=== PATIENT | male | born 1960 | race Caucasian/White ===

== ENCOUNTER 2020-11-29 07:58 | Outpatient (REF) | payer OTHER, SELFPAY ==
--- NOTE | ~2020-11-29 | US_ITS ---
EXAMINATION: US ABDOMEN LIMITED CLINICAL INFORMATION: Left lower quadrant pain. Intermittent pain. COMPARISON: None TECHNIQUE: Real-time imaging of the lower quadrant using a curved transducer. FINDINGS: No abnormality is evident by ultrasound. No hernia or abdominal wall fluid collection is seen. No abnormal loops of bowel, mass or ascites is seen. US/US abdomen limited IMPRESSION: No abnormality seen by ultrasound.
== END 2020-11-29 07:59 | disposition home or self-care (01) ==
LOC: HO.US 07:58
PROVIDERS: PCP Family Medicine; Visit Provider Family Medicine
DX: R10.32 Left lower quadrant pain (principal)
CPT/HCPCS: 76705

== ENCOUNTER 2020-11-29 09:07 | Outpatient (REF) | payer OTHER, SELFPAY ==
[2020-11-29 11:03] LABS: Alanine Aminotransferase 17 U/L (0-40); Albumin Level 3.9 g/dL (3.5-5.0); Alkaline Phosphatase 58 U/L (39-117); Anion Gap 11 (12-20); Aspartate Amino Transferase 16 U/L (5-37); Bilirubin Total 0.6 mg/dL (0.0-1.0); Blood Urea Nitrogen 18 mg/dL (9-16); Calcium 8.9 mg/dL (8.4-10.2); Carbon Dioxide 26 mmol/L (22-29); Chloride 105 mmol/L (96-108); Cholesterol 183 mg/dL; Estimated Glomerular Filt Rate > 60; Glucose Fasting 92 mg/dL (60-99); HDL Cholesterol 41 mg/dL; LDL Cholesterol Calculated 125 mg/dl; Potassium 4.4 mmol/L (3.3-5.1); Sodium 138 mmol/L (135-145); Total Protein 6.3 g/dL (6.5-8.0); Triglycerides 87 mg/dL
[2020-11-29 11:11] LABS: TSH reflex Free T4 1.52 uIU/mL (0.32-4.0)
== END 2020-11-29 09:08 | disposition home or self-care (01) ==
LOC: HO.WFDLDS 09:07
PROVIDERS: Visit Provider Family Medicine
DX: Z00.00 Encounter for general adult medical examination without abnormal findings (principal)
CPT/HCPCS: 36415; 80053; 80061; 84443

== ENCOUNTER 2021-06-17 12:07 | Outpatient (REF) | payer OTHER, SELFPAY ==
[2021-06-17 14:56] LABS: Prostate Specific Antigen Scr 0.37 ng/mL (<0.05-4.0)
== END 2021-06-17 12:08 | disposition home or self-care (01) ==
LOC: HO.WFDLDS 12:07
PROVIDERS: Visit Provider Family Medicine
DX: Z12.5 Encounter for screening for malignant neoplasm of prostate (principal)
CPT/HCPCS: 36415; 84153

== ENCOUNTER 2022-03-03 07:57 | Outpatient (REF) | payer OTHER, SELFPAY ==
--- NOTE | ~2022-03-03 | XR_ITS ---
EXAMINATION: XR SHOULDER, RIGHT CLINICAL INFORMATION: Shoulder pain COMPARISON: None TECHNIQUE: Right shoulder is imaged in 3 views. FINDINGS: No fracture, dislocation, destructive process. No visible rotator cuff calcifications. The glenohumeral joint is unremarkable. The acromioclavicular alignment is normal. There are mild degenerative changes acromioclavicular joint. Right lung apex appears clear. XR/XR shoulder RT min 2V IMPRESSION: Mild degenerative changes acromioclavicular joint.
== END 2022-03-03 07:58 | disposition home or self-care (01) ==
LOC: HO.HOSX 07:57
PROVIDERS: Visit Provider Physician Assistant
DX: M75.101 Unspecified rotator cuff tear or rupture of right shoulder, not specified as traumatic (principal)
CPT/HCPCS: 73030; 99202

== ENCOUNTER → 2022-03-16 15:09 | Outpatient (BNVA) | payer OTHER, SELFPAY | PROVIDERS: PCP Family Medicine; Visit Provider Orthopaedic Surgery | DX: M75.101 Unspecified rotator cuff tear or rupture of right shoulder, not specified as traumatic (principal) | CPT/HCPCS: 99212 ==

== ENCOUNTER 2022-03-27 08:41 | Outpatient (REF) | payer OTHER, SELFPAY ==
[2022-03-27 11:11] LABS: MANUAL DIFF FLAG NO
[2022-03-27 11:38] LABS: Basophils Percent Auto 0.4 % (0-2); Eosinophils Absolute Auto 0.4 X10*3/uL (0.0-0.4); Eosinophils Percent Auto 5.8 % (0-4); Hematocrit 39.9 % (42.0-52.0); Hemoglobin 13.6 g/dl (14.0-18.0); Imm Gran Abs Auto 0.03 X10*3/uL (0.00-0.03); Imm Gran Pct Auto 0.4 % (0.0-0.4); Lymphocytes Absolute Auto 1.7 X10*3/uL (1.2-4.9); Lymphocytes Percent Auto 24.2 % (20-40); Mean Corpuscular HGB Conc 34.1 g/dl (31.0-36.0); Mean Corpuscular Hemoglobin 30.2 pg (27.0-33.0); Mean Corpuscular Volume 88.5 fL (80.0-98.0); Mean Platelet Volume 10.3 fL (9.4-12.4); Monocytes Absolute Auto 0.5 X10*3/uL (0.1-1.2); Monocytes Percent Auto 7.1 % (2-11); Neutrophils Absolute Auto 4.4 x10*3/uL (2.0-8.3); Neutrophils Percent Auto 62.1 % (45-73); Platelet Count 250 X10*3/uL (160-400); Red Blood Count 4.51 X10*6/uL (4.60-5.80); Red Cell Distribution Width 11.6 % (11.0-16.0); White Blood Count 7.1 X10*3/uL (4.8-10.8)
[2022-03-27 11:40] LABS: Appearance Urine Clear; Color Urine Yellow; Glucose Urine UA Negative (Negative); Leukocyte Esterase Urine Negative (Negative); Nitrite Urine Negative (Negative); PH 5.5 (5.0-9.0); Urine Blood Negative (Negative); Urine Ketones Negative (Negative); Urine Protein Negative (Neg-Trace)
[2022-03-27 11:47] LABS: Alanine Aminotransferase 18 U/L (0-40); Alkaline Phosphatase 53 U/L (39-117); Anion Gap 13 (12-20); Aspartate Amino Transferase 15 U/L (5-37); Bilirubin Total 0.5 mg/dL (0.0-1.0); Blood Urea Nitrogen 16 mg/dL (9-16); Calcium 8.9 mg/dL (8.4-10.2); Carbon Dioxide 29 mmol/L (22-29); Chloride 102 mmol/L (96-108); Cholesterol 215 mg/dL; Estimated Glomerular Filt Rate > 60; Glucose Fasting 100 mg/dL (60-99); HDL Cholesterol 39 mg/dL; LDL Cholesterol Calculated 156 mg/dl; Potassium 4.4 mmol/L (3.3-5.1); Sodium 140 mmol/L (135-145); Total Protein 6.5 g/dL (6.5-8.0); Triglycerides 104 mg/dL
[2022-03-27 12:10] LABS: Prostate Specific Antigen Scr 0.34 ng/mL (<0.05-4.0); TSH reflex Free T4 1.52 uIU/mL (0.32-4.0)
[2022-03-27 12:17] LABS: Creatinine Urine 69.35 mg/dL; Microalbumin Urine < 5.0 mg/L
== END 2022-03-27 08:42 | disposition home or self-care (01) ==
LOC: HO.WFDLDS 08:41
PROVIDERS: Visit Provider Family Medicine
DX: Z00.00 Encounter for general adult medical examination without abnormal findings (principal); I10 Essential (primary) hypertension; Z12.5 Encounter for screening for malignant neoplasm of prostate
CPT/HCPCS: 36415; 80053; 80061; 81003; 82043; 84153; 84443; 85025

== ENCOUNTER 2022-05-01 11:20 | Outpatient (REF) | payer OTHER, SELFPAY ==
[2022-05-01 13:48] LABS: MANUAL DIFF FLAG NO
[2022-05-01 13:52] LABS: Basophils Percent Auto 0.3 % (0-2); Eosinophils Absolute Auto 0.3 X10*3/uL (0.0-0.4); Eosinophils Percent Auto 4.2 % (0-4); Hemoglobin 13.4 g/dl (14.0-18.0); Imm Gran Abs Auto 0.02 X10*3/uL (0.00-0.03); Imm Gran Pct Auto 0.3 % (0.0-0.4); Lymphocytes Absolute Auto 1.6 X10*3/uL (1.2-4.9); Lymphocytes Percent Auto 22.2 % (20-40); Mean Corpuscular HGB Conc 34.4 g/dl (31.0-36.0); Mean Corpuscular Hemoglobin 31.1 pg (27.0-33.0); Mean Corpuscular Volume 90.5 fL (80.0-98.0); Mean Platelet Volume 10.2 fL (9.4-12.4); Monocytes Absolute Auto 0.5 X10*3/uL (0.1-1.2); Neutrophils Absolute Auto 4.7 x10*3/uL (2.0-8.3); Platelet Count 226 X10*3/uL (160-400); Red Blood Count 4.31 X10*6/uL (4.60-5.80); Red Cell Distribution Width 11.8 % (11.0-16.0); White Blood Count 7.2 X10*3/uL (4.8-10.8)
[2022-05-01 14:02] LABS: Prothrombin Time 11.7 SEC (10.0-13.1)
[2022-05-01 14:15] LABS: Anion Gap 14 (12-20); Blood Urea Nitrogen 16 mg/dL (9-16); Carbon Dioxide 28 mmol/L (22-29); Chloride 101 mmol/L (96-108); Estimated Glomerular Filt Rate > 60; Glucose Random 111 mg/dL (60-115); Potassium 4.3 mmol/L (3.3-5.1); Sodium 139 mmol/L (135-145)
== END 2022-05-01 11:21 | disposition home or self-care (01) ==
LOC: HO.WFDLDS 11:20
PROVIDERS: Visit Provider Family Medicine
DX: Z01.810 Encounter for preprocedural cardiovascular examination (principal)
CPT/HCPCS: 36415; 80048; 85025; 85610

== ENCOUNTER → 2022-05-04 15:09 | Outpatient (BNVA) | payer OTHER, SELFPAY | PROVIDERS: PCP Family Medicine; Visit Provider Physician Assistant | DX: M75.101 Unspecified rotator cuff tear or rupture of right shoulder, not specified as traumatic (principal) | CPT/HCPCS: 99212 ==

== ENCOUNTER 2022-05-10 06:13 | Day surgery (SDC) | payer OTHER, SELFPAY ==
[2022-05-04 14:23] VITALS: BMI 27.7
--- NOTE | 2022-05-09 08:11 | HO.ANESPROP2 ---
Documented by User: Tameka Ramirez NP 05/09/22 08:12 HPI - Anesthesia Eval Consult details Narrative: 61yo M for Right Arthroscopic Rotator Cuff Repair PCP cleared PMFSH Active Problems Active Problems: All Active Problems (Updated 05/04/22 @ 14:22 by Radha Wick RN) Laboratory examination ordered as part of a routine general medical examination (Acute) Dermatitis (Acute) Abdominal wall pain in left lower quadrant (Acute) Anxiety (Acute) Screening for colon cancer (Acute) Screening for prostate cancer (Acute) Annual physical exam (Acute) Right shoulder pain (Acute) Elevated blood pressure reading (Acute) Hearing loss (Acute) Right rotator cuff tear (Acute) Preop cardiovascular exam (Acute) Past Medical History Medical History (Updated 05/10/22 @ 06:19 by Parisa Bo RN) Anxiety GERD (gastroesophageal reflux disease) Family History Family History Mother No problems noted. Father No problems noted. 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 Meds Allergies Allergy/AdvReac Type Severity Reaction Status Date / Time No Known Allergies Allergy Verified 05/10/22 06:23 Home Medications Medication Instructions Recorded Confirmed Last Taken Type bupropion HCl 300 mg 24 hr tablet, 300 mg PO QAM 04/28/22 05/10/22 05/10/22 05:00 History extended release escitalopram oxalate 20 mg tablet 20 mg PO BEDTIME 05/04/22 05/10/22 Unknown History omeprazole 20 mg tablet,delayed 20 mg PO DAILY 05/10/22 05/10/22 Unknown History release Exam Exam Date and Time: May 09, 2022 0811 Height,Weight and Vital Signs: Height 5 ft 6 in Weight 78.018 kg Pertinent Lab Results Pertinent Lab Results: Laboratory Tests 05/01/22 05/01/22 11:26 11:26 WBC 7.2 Hgb 13.4 L Hct 39.0 L Plt Count 226 Sodium 139 Potassium 4.3 Chloride 101 Carbon Dioxide 28 BUN 16 Creatinine 1.19 Narrative Narrative: EKG 04/2022 NSR @ 62 Assessment and Plan Assessment Anesthesia Assessment: Chart Reviewed Documented by User: Maco Bustos MD 05/10/22 17:08 [facility] Past Medical History Medical History (Updated 05/10/22 @ 06:19 by Parisa Bo RN) Anxiety GERD (gastroesophageal reflux disease) Functional capacity: independent ambulation Family History Family History Mother No problems noted. Father No problems noted. 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 Meds Allergies Allergy/AdvReac Type Severity Reaction Status Date / Time No Known Allergies Allergy Verified 05/10/22 06:23 Home Medications Medication Instructions Recorded Confirmed Last Taken Type bupropion HCl 300 mg 24 hr tablet, 300 mg PO QAM 04/28/22 05/10/22 05/10/22 05:00 History extended release escitalopram oxalate 20 mg tablet 20 mg PO BEDTIME 05/04/22 05/10/22 Unknown History omeprazole 20 mg tablet,delayed 20 mg PO DAILY 05/10/22 05/10/22 Unknown History release Exam Airway Mallampati Class: IV (narrow mouth opening ) TM Dist: >3cm Neck ROM: Full Loose/Missing/Broken Teeth: Yes (Poor dentition overall ) Heart: S1,S2 Lungs: b/l breath sounds Assessment and Plan Assessment Anesthesia Assessment: Anesthesia Plan Discussed Final Anesthetic Review Family History of Problems with Anesthesia: No History of Problems with Anesthesia: No NPO: Yes ASA Class: II Final Preanesthetic Review: Meds/Allgs Chart Reviewed, Consent Obtained/Reviewed and Anes Risks/Benef Reviewed Patient Risk: Intermediate Procedure Risk: Intermediate Anesthetic Plan Anesthetic Plan: GA and Regional Block Disposition: Standard PACU
[2022-05-10] VITALS (11 sets, daily range): BP systolic 119–161; BP diastolic 72–81; PULSE 67–75; RESP 12–20; TEMP 36.3–36.7; O2SAT 93–98
[2022-05-10] MEDS: Lactated Ringers 1,000 ML 100 ML IVCONT (06:39)
--- NOTE | 2022-05-10 07:33 | MHC.SHP ---
Pre-Procedural Eval Section A Date of Service: 05/10/22 The patient is an INPATIENT: No Changes since office visit: No Cold of Flu in the past 2 weeks, No New Medical Problems, No Changes in Medication and No Patient answered all questions The History & Physical has been completed within 30 days and I have reviewed it.: Yes Section B Chief Complaint: Unspecified rotator cuff tear or rupture of right Allergies: Allergies Allergy/AdvReac Type Severity Reaction Status Date / Time No Known Allergies Allergy Verified 05/10/22 06:23 Plan I have reviewed the history and physical and performed a pertinent physical examination on my patient. No changes have occurred unless specified.
--- NOTE | 2022-05-10 09:26 | PM.OP ---
Brief Operative Note Date of Service: 05/10/22 Pre-op diagnosis: Right RTC tear Post-op diagnosis: same Procedure: Right RTC repair and SAD Implants: Lincoln and Nephew Melacoil x 5 Surgeon: Inderjit Mcgovern MD Anesthesia: GETA and regional Was an Sulfuric Acid Plant Supervisor used for this Procedure?: Yes Sulfuric Acid Plant Supervisor: Zaida Jimenez Estimated blood loss (mL): 20 IV fluids (mL): 850 Pathology: none sent Condition: stable Disposition: PACU
--- NOTE | 2022-05-10 09:33 | P.OP_ITS ---
Operative Note Operative Note Date of Service: 05/10/22 Narrative: Date of Service: 05/10/22 Pre-op diagnosis: Right RTC tear Post-op diagnosis: same Procedure: Right RTC repair and SAD Implants: Lincoln and Nephew Melacoil x 5 Surgeon: Inderjit Mcgovern MD Anesthesia: GETA and regional Was an Skeins Yarn Examiner used for this Procedure?: Yes Skeins Yarn Examiner: Zaida Jimenez Estimated blood loss (mL): 20 IV fluids (mL): 850 Pathology: none sent Condition: stable Disposition: PACU Procedure in detail: Patient was brought to the operating room and placed the the beach chair position. All bony prominences were well padded and the limb was prepped and draped in standard sterile fashion. A time out was called to identify proper site, proper procedure and proper surgeon. IV antibiotics per weight were administered. I began by making a posterolateral stab incision with a 15 blade. A blunt trochar was placed into the glenohumeral joint and I insufflated the joint with saline and a 30 degree arthroscope was placed. I established an outside- in anterior portal just distal to the biceps tendon. I then began my inspection of the glenohumeral joint. There was an intact biceps. The glenoid and humeral head cartilage were intact. There was a full thickness undersurface RTC tear. The subcapularis was intact. I then removed the trochar and entered the subacromial space. A direct lateral portal was then established and I performed a bursectomy. The cuff was then examined. There was a full thickness tear of the supra and infraspinatus without retraction. The tear was mobile. I then placed two medial row double loaded anchors and then brought the suture tape through the medial cuff. I added two looped sutures at the anterior and posterior most aspect of the tear. I then debrided the bare area down to bleeding bone and, using a cross bridge configuration, brought 9 limbs to three lateral 5.0 anchors. This re- approximated the cuff anatomy near anatomically. I then performed a 5 mm subacromial decompression. Once I was satisfied with the repair final images were captured and I removed all instrumentation. Portals were closed with nylon. Patient was placed in an abduction sling, extubated and brought to the recovery room in stable condition. There were no known complications.
[2022-05-10] MEDS: oxyCODONE HCl Immed Release 5 MG TABLET PO (10:23)
== END 2022-05-10 12:35 | disposition home or self-care (01) ==
PROVIDERS: PCP Family Medicine; Visit Provider Orthopaedic Surgery
PROC: (CPT 29827; principal; 2022-05-10 07:30)
DX: S46.011A Strain of muscle(s) and tendon(s) of the rotator cuff of right shoulder, initial encounter (principal); X50.3XXA Overexertion from repetitive movements, initial encounter; X50.1XXA Overexertion from prolonged static or awkward postures, initial encounter; Y93.89 Activity, other specified; Y92.69 Other specified industrial and construction area as the place of occurrence of the external cause; Y99.0 Civilian activity done for income or pay; F41.1 Generalized anxiety disorder; Z79.899 Other long term (current) drug therapy
CPT/HCPCS: 29827; 29826; C1713; J0131; J0171; J0690; J1100; J1170; J2250; J2405; J2795; J3010

== ENCOUNTER 2022-07-20 09:05 | Outpatient (REF) | payer OTHER, SELFPAY ==
[2022-07-20 10:34] LABS: MANUAL DIFF FLAG NO
[2022-07-20 10:47] LABS: Basophils Percent Auto 0.6 % (0-2); Eosinophils Absolute Auto 0.4 X10*3/uL (0.0-0.4); Eosinophils Percent Auto 5.8 % (0-4); Hematocrit 40.7 % (42.0-52.0); Hemoglobin 13.9 g/dl (14.0-18.0); Imm Gran Abs Auto 0.02 X10*3/uL (0.00-0.03); Imm Gran Pct Auto 0.3 % (0.0-0.4); Lymphocytes Absolute Auto 1.8 X10*3/uL (1.2-4.9); Lymphocytes Percent Auto 25.5 % (20-40); Mean Corpuscular HGB Conc 34.2 g/dl (31.0-36.0); Mean Corpuscular Volume 87.7 fL (80.0-98.0); Mean Platelet Volume 9.8 fL (9.4-12.4); Monocytes Absolute Auto 0.5 X10*3/uL (0.1-1.2); Monocytes Percent Auto 7.5 % (2-11); Neutrophils Absolute Auto 4.3 x10*3/uL (2.0-8.3); Neutrophils Percent Auto 60.3 % (45-73); Platelet Count 253 X10*3/uL (160-400); Red Blood Count 4.64 X10*6/uL (4.60-5.80); Red Cell Distribution Width 11.5 % (11.0-16.0); White Blood Count 7.1 X10*3/uL (4.8-10.8)
[2022-07-20 11:58] LABS: Alanine Aminotransferase 24 U/L (0-40); Alkaline Phosphatase 63 U/L (39-117); Anion Gap 9 (12-20); Aspartate Amino Transferase 17 U/L (5-37); Bilirubin Total 0.5 mg/dL (0.0-1.0); Blood Urea Nitrogen 17 mg/dL (9-16); Calcium 9.1 mg/dL (8.4-10.2); Carbon Dioxide 31 mmol/L (22-29); Chloride 101 mmol/L (96-108); Cholesterol 240 mg/dL; Estimated Glomerular Filt Rate > 60; Glucose Fasting 90 mg/dL (60-99); HDL Cholesterol 44 mg/dL; LDL Cholesterol Calculated 172 mg/dl; Sodium 137 mmol/L (135-145); Total Protein 6.4 g/dL (6.5-8.0); Triglycerides 120 mg/dL
== END 2022-07-20 09:06 | disposition home or self-care (01) ==
LOC: HO.WFDLDS 09:05
PROVIDERS: Visit Provider Family Medicine
DX: Z00.00 Encounter for general adult medical examination without abnormal findings (principal)
CPT/HCPCS: 36415; 80053; 80061; 85025

== ENCOUNTER → 2022-07-27 14:54 | Outpatient (BNVA) | payer OTHER, SELFPAY | PROVIDERS: PCP Family Medicine; Visit Provider Physician Assistant | DX: M75.101 Unspecified rotator cuff tear or rupture of right shoulder, not specified as traumatic (principal) ==

== ENCOUNTER 2022-08-14 09:35 | Outpatient (REF) | payer OTHER, SELFPAY ==
--- NOTE | ~2022-08-14 | XR_ITS ---
EXAMINATION: XR SHOULDER, RIGHT CLINICAL INFORMATION: Pain. COMPARISON: Radiographs dated 03/03/2022. TECHNIQUE: AP external rotation, Grashey, scapular Y, and axillary views of the right shoulder. FINDINGS: There is bony demineralization. The glenohumeral joint is intact and shows mild peripheral osteophyte formation. Orthopedic anchors are applied in the interim to the right humeral head. There is cortical irregularity of the greater tuberosity of the proximal right humerus. No fracture or dislocation is seen. This no soft tissue calcifications or foreign body. No right pneumothorax is seen. XR/XR shoulder RT min 2V IMPRESSION: 1. There is mild osteoarthritic change of the right glenohumeral joint. 2. There is interim application of orthopedic anchors to the right humeral head. Please correlate with the patient's past medical history.
== END 2022-08-14 09:36 | disposition home or self-care (01) ==
LOC: HO.HOSX 09:35
PROVIDERS: Visit Provider Physician Assistant
DX: M25.511 Pain in right shoulder (principal); Z47.89 Encounter for other orthopedic aftercare
CPT/HCPCS: 73030

== ENCOUNTER 2022-08-16 16:00 | Outpatient (RCR) | payer OTHER, SELFPAY ==
--- NOTE | 2022-09-18 17:50 | MHC.PT.DC ---
[facility] [place] Office [place] Office [place] Office [address] Sarah Kwan [address] [phone] F: [phone] F: [phone] F: [phone] F: [phone] Physical Therapy Discharge Report Diagnosis: R RTCR (SS/IS) Date of Surgery: 05/10/22 Date of Evaluation: 05/15/22 Date of Discharge: 09/18/22 Treatments to Date: Cancellations to Date: 1 No Shows to Date: 0 Discharge Status: Insurance Declined Tx Discharge Summary: Per last treatment note on 08/16/22: pt was at work but was doing nearly his full duties prior to his injuries. He was starting to develop a persistent achiness that wasn't going away. He followed-up w/ the orthopedic surgeon who regressed him to desk duties only. pt stated he forgot the new stretches we worked on during his last visit so he hasn't been working on them. We reviewed the internal rotation stretches as this is his most limited range of motion. pt otherwise tolerated remainder of session well. Continue to maximize range, strength, and promote return to full work capacity. Request for additional visits was denied by insurance. Per our insurance rep she was told his insurance wants him to attend a specific work hardening program which we do not offer here at [facility]. He is discharged per insurance. Electronically signed by: Anabel Michelle PT, DPT Please sign and return to therapist. Thank you for your referral.
== END 2022-09-18 17:50 | disposition home or self-care (01) ==
LOC: HO.PT 16:00
PROVIDERS: Visit Provider Physician Assistant
DX: Z98.890 Other specified postprocedural states (principal)
CPT/HCPCS: 97110; 97140; 97161; 97164; 97530

== ENCOUNTER 2022-09-18 09:21 | Outpatient (REF) | payer OTHER, SELFPAY ==
[2022-09-18 11:28] LABS: MANUAL DIFF FLAG NO
[2022-09-18 11:46] LABS: Basophils Percent Auto 0.5 % (0-2); Eosinophils Absolute Auto 0.4 X10*3/uL (0.0-0.4); Eosinophils Percent Auto 4.9 % (0-4); Hemoglobin 13.5 g/dl (14.0-18.0); Imm Gran Abs Auto 0.03 X10*3/uL (0.00-0.03); Imm Gran Pct Auto 0.4 % (0.0-0.4); Lymphocytes Percent Auto 25.6 % (20-40); Mean Corpuscular HGB Conc 34.6 g/dl (31.0-36.0); Mean Corpuscular Hemoglobin 30.3 pg (27.0-33.0); Mean Corpuscular Volume 87.6 fL (80.0-98.0); Mean Platelet Volume 10.3 fL (9.4-12.4); Monocytes Absolute Auto 0.5 X10*3/uL (0.1-1.2); Monocytes Percent Auto 6.7 % (2-11); Neutrophils Absolute Auto 4.9 x10*3/uL (2.0-8.3); Neutrophils Percent Auto 61.9 % (45-73); Platelet Count 239 X10*3/uL (160-400); Red Blood Count 4.45 X10*6/uL (4.60-5.80); Red Cell Distribution Width 11.7 % (11.0-16.0); White Blood Count 7.9 X10*3/uL (4.8-10.8)
[2022-09-18 12:17] LABS: Anion Gap 9 (12-20); Blood Urea Nitrogen 16 mg/dL (9-16); Calcium 8.6 mg/dL (8.4-10.2); Carbon Dioxide 32 mmol/L (22-29); Chloride 103 mmol/L (96-108); Cholesterol 200 mg/dL; Estimated Glomerular Filt Rate > 60; Glucose Random 92 mg/dL (60-115); HDL Cholesterol 40 mg/dL; LDL Cholesterol Calculated 140 mg/dl; Potassium 4.2 mmol/L (3.3-5.1); Sodium 140 mmol/L (135-145); Triglycerides 103 mg/dL
== END 2022-09-18 09:22 | disposition home or self-care (01) ==
LOC: HO.WFDLDS 09:21
PROVIDERS: Visit Provider Family Medicine
DX: Z00.00 Encounter for general adult medical examination without abnormal findings (principal); E78.00 Pure hypercholesterolemia, unspecified; D64.9 Anemia, unspecified
CPT/HCPCS: 36415; 80048; 80061; 85025

== ENCOUNTER → 2022-09-25 15:17 | Outpatient (BNVA) | payer OTHER, SELFPAY | PROVIDERS: Visit Provider Physician Assistant | DX: Z13.89 Encounter for screening for other disorder (principal) ==

== ENCOUNTER → 2022-11-13 15:18 | Outpatient (BNVA) | payer OTHER, SELFPAY | PROVIDERS: PCP Family Medicine; Visit Provider Physician Assistant ==

== ENCOUNTER 2023-02-05 07:39 | Outpatient (REF) | payer OTHER, SELFPAY ==
[2023-02-05 11:51] LABS: Appearance Urine Clear; Color Urine Yellow; Glucose Urine UA Negative (Negative); Leukocyte Esterase Urine Negative (Negative); Nitrite Urine Negative (Negative); PH 5.5 (5.0-9.0); Specific Gravity - Urine 1.015 (1.005-1.025); Urine Blood Negative (Negative); Urine Ketones Negative (Negative); Urine Protein Negative (Neg-Trace)
[2023-02-05 12:25] LABS: Prostate Specific Antigen Scr 0.37 ng/mL (<0.05-4.0)
[2023-02-05 12:26] LABS: Alanine Aminotransferase 23 U/L (0-40); Alkaline Phosphatase 59 U/L (39-117); Anion Gap 15 (12-20); Aspartate Amino Transferase 21 U/L (5-37); Bilirubin Total 0.3 mg/dL (0.0-1.0); Blood Urea Nitrogen 18 mg/dL (9-16); Calcium 9.6 mg/dL (8.4-10.2); Carbon Dioxide 25 mmol/L (22-29); Chloride 102 mmol/L (96-108); Cholesterol 199 mg/dL; Estimated Glomerular Filt Rate > 60; Glucose Fasting 106 mg/dL (60-99); HDL Cholesterol 44 mg/dL; LDL Cholesterol Calculated 134 mg/dl; Potassium 4.3 mmol/L (3.3-5.1); Sodium 138 mmol/L (135-145); Total Protein 6.7 g/dL (6.5-8.0); Triglycerides 107 mg/dL
[2023-02-05 13:13] LABS: Creatinine Urine 116.34 mg/dL; Microalbumin Urine < 5.0 mg/L
== END 2023-02-05 07:40 | disposition home or self-care (01) ==
LOC: HO.WFDLDS 07:39
PROVIDERS: Visit Provider Family Medicine
DX: Z00.00 Encounter for general adult medical examination without abnormal findings (principal); Z12.5 Encounter for screening for malignant neoplasm of prostate; E78.00 Pure hypercholesterolemia, unspecified; I10 Essential (primary) hypertension
CPT/HCPCS: 36415; 80053; 80061; 81003; 82043; 84153; 84443

== ENCOUNTER 2023-02-16 15:59 | Outpatient (AMB) | payer OTHER, SELFPAY ==
[2023-02-16 16:12] VITALS: BP 122/72; PULSE 71; O2SAT 98; BMI 26.4
--- NOTE | 2023-02-16 16:12 | A.OFFPC_ITS ---
Vital Signs 02/16/23 16:12 Height 5 ft 6 in Weight 163 lb 6 oz BMI 26.4 BP 122/72 Blood Pressure Location Lt brachial Position Sitting Pulse 71 Pulse Source Pulse Oximeter Pulse Oximetry (%) 98 Oxygen Delivery Method Room Air Intake Visit Reasons: CPE, with f/u labs and health maintenance, HTN Intake Note: Patient is here for his physical toaday, and is concerned about skin irritation on right wrist area about 2 days ago, working outside. Allergies No Known Allergies Allergy (Verified 02/16/23 16:14) Tobacco use date assessed: 02/16/23 Dental Screening Dental Screen Date: 02/16/23 Did you have a dental visit in the last 12 months?: Yes Did you have a dental problem in the last 6 months where you did not have access to dental care?: No Was dental information given to patient?: No HPI CPE, with f/u labs and health maintenance, HTN HPI Details 62 y/o male presents for a CPE with f/u labs and health maintenance. Labs were drawn 02/05/23. Reviewed labs with pt. Triglycerides 107. TC 199. LDL 134. HDL 44. Elevated fasting glucose of 106. Blood pressure today is 122/72. He is on hydrochlorothiazide 12.5mg and lisinopril 20mg daily. He has seen [facility] for his mild anemia - they report nothing needs to be done right now. Pt reports some hearing changes. Pt has complaints of a rash on his R wrist area. [facility] Medical History Anxiety GERD (gastroesophageal reflux disease) Surgical History History of deviated nasal septum History of surgery on lower extremity Hx of appendectomy Family History Mother No problems noted. Father Liver cancer Paternal Grandmother Primary cancer of muscle of thorax Paternal Grandfather Colon cancer Maternal Grandfather due to metastatic malignant neoplasm Maternal Grandmother due to metastatic malignant neoplasm Maternal Grandfather Stomach cancer Maternal Grandmother Pancreatic cancer Social History Household Members: Spouse and Family Housing: House Alcohol intake: current Alcohol intake frequency: 0-2 drinks per day Alcohol type: beer Patient Tobacco Use Status: Never used Tobacco e-Cigarette/Vaping Use: Never Used Second Hand Smoke Exposure: No Substance Use Type: Marijuana service: No Current occupational status: employed 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 Del Vázquez, Melanie Herr, Robert Terrazas and colleagues, with an educational kiesha from [employer]. Review of Systems Const Denies chills, Denies fatigue, Denies fever(s), Denies headache(s) and Denies weakness Eyes Denies change in vision ENT Denies dizziness, Denies headache(s), Denies hearing loss, Denies nasal congestion, Denies sinus pain, Denies sinus pressure and Denies sore throat Card Denies chest pain, Denies lightheadedness, Denies dyspnea and Denies other (palpitations) Resp Denies cough, Denies dyspnea and Denies wheezing GI Denies abdominal pain, Denies melena, Denies hematochezia, Denies change in bowel habits, Denies dyspepsia and Denies nausea Denies hematuria and Denies dysuria Musc Denies abnormal gait, Denies myalgias, Denies arthralgias, Denies numbness and Denies tingling Skin/Breast Reports rash, Denies unusual bruising and Denies wounds Neuro Denies abnormal gait, Denies dizziness, Denies headache(s), Denies memory loss, Denies numbness, Denies Sensory deficit (Neuro), Denies tingling and Denies weakness Psych Denies anxiety, Denies depression and Denies memory loss Endo Denies cold intolerance, Denies fatigue, Denies heat intolerance, Denies polydipsia and Denies polyuria Eusebio/Lymph Denies easy bleeding and Denies easy bruising Aller/Immun Denies wheezing Physical exam (Primary Care) Vital Signs: Last Vital Signs Pulse 71 02/16/23 16:12 BP 122/72 02/16/23 16:12 Pulse Ox 98 02/16/23 16:12 Oxygen Delivery Method Room Air 02/16/23 16:12 BMI result Body Mass Index 26.4 Tobacco/Smoking Status: Tobacco use Status Tobacco use date assessed 02/16/23 02/16/23 16:18 Patient Tobacco Use Status Never used Tobacco 02/16/23 16:18 e-Cigarette/Vaping Use Never Used 02/16/23 16:18 Thrive Assessment: Date of Thrive Assessment Date Thrive assessed 07/31/22 02/16/23 16:18 Const General: no acute distress, well developed, alert and awake Nutritional Appearance: well nourished Orientation/consciousness: patient oriented x3 HENMT Head: Yes normocephalic and Yes atraumatic Ears: hearing grossly normal bilaterally and TM's normal bilaterally General nose exam: Normal external nose present and Normal nares present Mouth: Normal oral and palatal mucosa present and moist mucous membranes Teeth and gingiva: dentition normal Throat: Yes posterior oropharynx normal Eyes General: appearance normal, both eyes and all related structures Pupils: Equal, round and reactive pupils present and Pupil accommodation reflex normal EOM: EOMs intact bilaterally Neck Neck: Yes normal visual inspection, Yes no lymphadenopathy and Yes trachea midline Thyroid: Thyroid normal Carotids: no bruits Lymphatic: no lymphadenopathy noted Chest Chest palpation & inspection: normal inspection of the chest Resp Effort & Inspection: normal respiratory effort Auscultation: clear to auscultation bilaterally Cardio Rate: regular rate Rhythm: regular rhythm Heart sounds: S1 normal heart sound present, S2 normal heart sound present, no gallops, no murmurs and no rubs Bruits: no abdominal aortic bruits and no carotid bruits GI Palpation (GI): No Abdominal aortic bruit present, Soft to palpation, nontender, No hepatosplenomegaly present and No Rebound tenderness present Auscultation: normal bowel sounds General: Yes no CVA tenderness Back/Spine/Pelvis Back: no CVA tenderness Cervical Spine: cervical ROM normal and No Cervical spine tenderness Thoracic/Lumbar Spine: thoraco-lumbar ROM normal, No pain with thoraco-lumbar ROM, No thoracic spinal tenderness and No lumbar spinal tenderness Skin Lesions: no lesions Rashes: no rashes Trauma: no lacerations or abrasions Wounds: no wounds Nails: normal Neuro General: patient oriented x3 Cranial nerves: Yes Equal, round and reactive pupils present Cognition (Neuro): normal cognition Gait exam (Neuro): Normal gait present Motor exam (neuro): 5/5 motor strength present throughout Sensory Exam: No Sensory deficit (Neuro) Deep tendon reflexes (DTR's): Right patellar reflex intensity grade: 2+ and Left patellar reflex intensity grade: 2+ Extrem General: Yes normal to inspection and No edema Psych Appearance: grossly normal Affect: normal affect Attitude: cooperative Thought process: Normal thought process present Assessment and Plan Assessment & Plan (1) Annual physical exam: Code(s): Z00.00 - Encounter for general adult medical examination without abnormal findings Plan: 62-year-old male presents for complete physical exam Encouraged healthy diet with active lifestyle and plenty of exercise (2) Hypertension: Code(s): I10 - Essential (primary) hypertension Plan: Blood pressure appears well controlled and he notes that his blood pressures are more even throughout his days and nights since breaking apart his combo medication where he now takes hydrochlorothiazide in the morning and lisinopril in the evening Continue current medication regimen (3) Mild anemia: Code(s): D64.9 - Anemia, unspecified Plan: Has seen Hematology-Oncology and no current concerns. Can follow his H&H every 6-12 months (4) Hypercholesterolemia: Code(s): E78.00 - Pure hypercholesterolemia, unspecified Plan: Lipids continue to improve as patient works on his diet LDL cholesterol almost at goal of less than 130 Encouraged exercise to help him reaches goal. 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 Jerome and he is up-to-date Will request report (8) Screening for prostate cancer: Code(s): Z12.5 - Encounter for screening for malignant neoplasm of prostate Plan: PSA is within normal limits (9) Rash: Code(s): R21 - Rash and other nonspecific skin eruption Plan: Appears to be contact dermatitis and likely poison sera Will give him a steroid ointment Orders: Referrals Audiology Referral H91.90 - Unspecified hearing loss, unspecified ear Medications: New betamethasone valerate 0.1% 1 appl topical BID PRN 45 grams 0RF skin irritation 10 days Coding Level of Care Code Est Pt Level 3 (40900) Est Pt Prev Care 40-64y(92907) Diagnoses Annual physical exam Z00.00 Hypertension I10 Mild anemia D64.9 Hypercholesterolemia E78.00 Elevated fasting glucose R73.01 Hearing loss H91.90 Screening for colon cancer Z12.11 Screening for prostate cancer Z12.5 Rash R21
== END 2023-02-16 16:42 | disposition home or self-care (01) ==
PROVIDERS: Visit Provider Family Medicine
DX: Z00.00 Encounter for general adult medical examination without abnormal findings (principal); I10 Essential (primary) hypertension; D64.9 Anemia, unspecified; E78.00 Pure hypercholesterolemia, unspecified; R73.01 Impaired fasting glucose; R21 Rash and other nonspecific skin eruption
CPT/HCPCS: 99396

== ENCOUNTER 2023-05-14 12:58 | Outpatient (REF) | payer OTHER, SELFPAY ==
[2023-05-14 14:45] LABS: Alanine Aminotransferase 14 U/L (0-40); Albumin Level 3.9 g/dL (3.5-5.0); Alkaline Phosphatase 57 U/L (39-117); Anion Gap 11 (12-20); Aspartate Amino Transferase 16 U/L (5-37); Bilirubin Total 0.3 mg/dL (0.0-1.0); Blood Urea Nitrogen 20 mg/dL (9-16); Calcium 8.9 mg/dL (8.4-10.2); Carbon Dioxide 29 mmol/L (22-29); Chloride 102 mmol/L (96-108); Estimated Glomerular Filt Rate > 60; Glucose Random 97 mg/dL (60-115); Potassium 4.3 mmol/L (3.3-5.1); Sodium 138 mmol/L (135-145); Total Protein 6.7 g/dL (6.5-8.0)
== END 2023-05-14 12:59 | disposition home or self-care (01) ==
LOC: HO.WFDLDS 12:58
PROVIDERS: Visit Provider Family Medicine
DX: R73.01 Impaired fasting glucose (principal)
CPT/HCPCS: 36415; 80053

== ENCOUNTER 2023-05-22 16:28 | Outpatient (AMB) | payer OTHER, SELFPAY ==
[2023-05-22 16:35] VITALS: BP 112/60; PULSE 66; O2SAT 99; BMI 27.2
--- NOTE | 2023-05-22 16:35 | MHC.PC.OV ---
Vital Signs 05/22/23 16:35 Height 5 ft 6 in Weight 168 lb 8 oz BMI 27.2 BP 112/60 Blood Pressure Location Lt brachial Position Sitting Pulse 66 Pulse Source Pulse Oximeter Pulse Oximetry (%) 99 Oxygen Delivery Method Room Air Intake Visit Reasons: f/u hypertension Intake Note: Patient is here to follow up on hypertension. Allergies No Known Allergies Allergy (Verified 05/22/23 16:39) Tobacco use date assessed: 05/22/23 HPI f/u hypertension HPI Details 62 y/o male presents to f/u hypertension. Blood pressure today 112/60. He is on lisinopril 20mg and HCTZ 12.5mg. Pt reports some GERD. [facility] Medical History (Updated 05/22/23 @ 16:55 by Kaz Mckenzie) GERD (gastroesophageal reflux disease) Anxiety Surgical History History of surgery on lower extremity Hx of appendectomy History of deviated nasal septum Family History Mother No problems noted. Father Liver cancer Paternal Grandmother Primary cancer of muscle of thorax Paternal Grandfather Colon cancer Maternal Grandfather due to metastatic malignant neoplasm Maternal Grandmother due to metastatic malignant neoplasm Maternal Grandfather Stomach cancer Maternal Grandmother Pancreatic cancer Social History Household Members: Spouse and Family Housing: House Alcohol intake: current Alcohol intake frequency: 0-2 drinks per day Alcohol type: beer Patient Tobacco Use Status: Never used Tobacco e-Cigarette/Vaping Use: Never Used Second Hand Smoke Exposure: No Substance Use Type: Marijuana service: No Current occupational status: employed 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 Del Vázquez, Melanie Herr, Robert Terrazas and colleagues, with an educational kiesha from [employer]. Review of Systems Const Denies chills, Denies fatigue, Denies fever(s), Denies headache(s) and Denies weakness ENT Denies dizziness and Denies headache(s) Card Denies chest pain, Denies lightheadedness, Denies dyspnea and Denies other (Palpitations) Resp Denies cough, Denies dyspnea, Denies wheezing and Denies other ( shortness of breath) Musc Denies numbness and Denies tingling Neuro Denies dizziness, Denies headache(s), Denies numbness, Denies tingling, Denies paresthesias and Denies weakness Psych Denies anxiety and Denies depression Endo Denies fatigue Aller/Immun Denies wheezing Physical exam (Primary Care) Vital Signs: Last Vital Signs Pulse 66 05/22/23 16:35 BP 112/60 05/22/23 16:35 Pulse Ox 99 05/22/23 16:35 Oxygen Delivery Method Room Air 05/22/23 16:35 BMI result Body Mass Index 27.2 Tobacco/Smoking Status: Tobacco use Status Tobacco use date assessed 05/22/23 05/22/23 16:41 Patient Tobacco Use Status Never used Tobacco 05/22/23 16:41 e-Cigarette/Vaping Use Never Used 05/22/23 16:41 Thrive Assessment: Date of Thrive Assessment Date Thrive assessed 07/31/22 05/22/23 16:41 Const General: no acute distress and well developed Nutritional Appearance: well nourished Orientation/consciousness: patient oriented x3 HENMT Head: Yes normocephalic and Yes atraumatic Eyes General: appearance normal, both eyes and all related structures Pupils: Equal, round and reactive pupils present EOM: EOMs intact bilaterally Resp Effort & Inspection: normal respiratory effort Auscultation: clear to auscultation bilaterally Cardio Rate: regular rate Rhythm: regular rhythm Heart sounds: S1 normal heart sound present, S2 normal heart sound present, no gallops, no murmurs and no rubs Neuro General: patient oriented x3 and gait normal Cranial nerves: Yes Equal, round and reactive pupils present Psych Affect: normal affect Assessment and Plan Assessment & Plan (1) Hypertension: Code(s): I10 - Essential (primary) hypertension Plan: Blood?pressure?is?controlled.??Goal?is?less?than?140/90 Continue?current?medication?regimen (2) GERD (gastroesophageal reflux disease): Code(s): K21.9 - Gastro-esophageal reflux disease without esophagitis Plan: He?will?let?me?know?if?this?is?worsening. (3) Mild anemia: Code(s): D64.9 - Anemia, unspecified Plan: Hematology-Oncology?workup?is?negative. We?can?follow?annually Coding Level of Care Code Est Pt Level 4 (45841) Diagnoses Hypertension I10 GERD (gastroesophageal reflux disease) K21.9 Mild anemia D64.9
== END 2023-05-22 17:03 | disposition home or self-care (01) ==
PROVIDERS: PCP Family Medicine; Visit Provider Family Medicine
DX: I10 Essential (primary) hypertension (principal); K21.9 Gastro-esophageal reflux disease without esophagitis; D64.9 Anemia, unspecified
CPT/HCPCS: 99214

== ENCOUNTER 2023-08-07 15:16 | Outpatient (REF) | payer OTHER, SELFPAY | END 2023-08-07 15:17 | disposition home or self-care (01) | LOC: HO.SH 15:16 | PROVIDERS: Visit Provider Family Medicine | DX: Z01.118 Encounter for examination of ears and hearing with other abnormal findings (principal); H90.3 Sensorineural hearing loss, bilateral | CPT/HCPCS: 92557 ==

== ENCOUNTER 2023-12-31 15:41 | Outpatient (AMB) | payer OTHER, SELFPAY ==
[2023-12-31 15:53] VITALS: BP 122/70; PULSE 73; O2SAT 98; BMI 28.0
--- NOTE | 2023-12-31 15:53 | A.OFFPC_ITS ---
Vital Signs 12/31/23 15:53 Height 5 ft 6 in Weight 173 lb 4 oz BMI 28.0 BP 122/70 Blood Pressure Location Lt brachial Position Sitting Pulse 73 Pulse Source Pulse Oximeter Pulse Oximetry (%) 98 Oxygen Delivery Method Room Air Intake Visit Reasons: High BP Intake Note: Patient is here to follow up on blood pressure, and has a machine at home, which reads high. Allergies No Known Allergies Allergy (Verified 12/31/23 15:54) Medication List - Last Reconciled 12/31/23 by Joseph Hudson MD betamethasone valerate 0.1% 1 appl topical BID PRN 10 days blood pressure monitor Automatic, Digital. Dx: I10. Daily As directed, 999 days/lifetime bupropion HCl XL 300 mg PO QAM escitalopram oxalate 20 mg PO BEDTIME hydrochlorothiazide 12.5 mg PO QAM 90 days lisinopril 20 mg PO QPM 90 days omeprazole 20 mg PO DAILY quetiapine 25 mg PO BEDTIME Tobacco use date assessed: 05/22/23 Dental Screening Dental Screen Date: 02/16/23 HPI High BP HPI Details 63 y/o male presents to f/u hypertension . Blood pressure today 122/70. He is on lisinopril 20mg, hydrochlorothiazide 12.5mg. Pt reports blood pressure at home have been reading high sometimes. He notes it reads from 140-160s intermittently when he gets home from work. Pt reports some acute adjustment disorder and anxiety/depression due to his coworkers passing away. HPI Comments History of Present Illness Details Documentation assistance for Joseph Hudson MD, was provided by Kaz Mckenzie, Insurance Defense Paralegal on 12/31/2023 at 4:02 PM EST. I, Dr. Hudson, have read, observed, and verified documentation. [facility] Medical History (Updated 05/22/23 @ 16:55 by Kaz Mckenzie) GERD (gastroesophageal reflux disease) Anxiety Surgical History History of surgery on lower extremity Hx of appendectomy History of deviated nasal septum Family History Mother No problems noted. Father Liver cancer Paternal Grandmother Primary cancer of muscle of thorax Paternal Grandfather Colon cancer Maternal Grandfather due to metastatic malignant neoplasm Maternal Grandmother due to metastatic malignant neoplasm Maternal Grandfather Stomach cancer Maternal Grandmother Pancreatic cancer Social History Household Members: Spouse and Family Housing: House Alcohol intake: current Alcohol intake frequency: 0-2 drinks per day Alcohol type: beer Patient Tobacco Use Status: Never used Tobacco e-Cigarette/Vaping Use: Never Used Second Hand Smoke Exposure: No Substance Use Type: Marijuana service: No Current occupational status: employed 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 How often do you have a drink containing alcohol?: 4 or more times a week 2. How many drinks containing alcohol do you have on a typical day when you are drinking?: 1 or 2 3. How often do you have six or more drinks on one occasion?: Never Total Score: 4 ELEANOR-7 AMB Questionnaire ELEANOR-7 Date ELEANOR - 7 assessed: 07/31/22 Source: Developed by Drs. Del Vázquez, Melanie Herr, Robert Terrazas and colleagues, with an educational kiesha from [employer]. Review of Systems Const Denies chills, Denies fatigue, Denies fever(s), Denies headache(s) and Denies weakness ENT Denies dizziness and Denies headache(s) Card Denies dyspnea Resp Denies cough, Denies dyspnea, Denies wheezing and Denies other (shortness of breath) Musc Denies numbness and Denies tingling Neuro Denies dizziness, Denies headache(s), Denies numbness, Denies tingling and Denies weakness Psych Reports anxiety and Denies depression Endo Denies fatigue Aller/Immun Denies wheezing Physical exam (Primary Care) Vital Signs: Last Vital Signs Pulse 73 12/31/23 15:53 BP 122/70 12/31/23 15:53 Pulse Ox 98 12/31/23 15:53 Oxygen Delivery Method Room Air 12/31/23 15:53 BMI result Body Mass Index 28.0 Tobacco/Smoking Status: Tobacco use Status Tobacco use date assessed 05/22/23 12/31/23 15:59 Patient Tobacco Use Status Never used Tobacco 12/31/23 15:59 e-Cigarette/Vaping Use Never Used 12/31/23 15:59 Thrive Assessment: Date of Thrive Assessment Date Thrive assessed 07/31/22 12/31/23 15:59 Const General: well developed; No acute distress Nutritional Appearance: well nourished Orientation/consciousness: patient oriented x3 [facility] Head: Yes normocephalic and Yes atraumatic Eyes General: appearance normal, both eyes and all related structures Pupils: Equal, round and reactive pupils present EOM: EOMs intact bilaterally Resp Effort & Inspection: normal respiratory effort Auscultation: clear to auscultation bilaterally Cardio Rate: regular rate Rhythm: regular rhythm Heart sounds: S1 normal heart sound present, S2 normal heart sound present, no gallops, no murmurs and no rubs Neuro General: patient oriented x3 and gait normal Cranial nerves: Yes Equal, round and reactive pupils present Psych Affect: normal affect Assessment and Plan Assessment & Plan (1) Hypertension: Code(s): I10 - Essential (primary) hypertension Plan: Blood?pressure?is?controlled?here?in?office.??Goal?is?less?than?140/90 However,?patient?notes?that?his?blood?pressures?are?high?after?work?any?associat es?this?with?stress?from?work. He?will?take?hydrochlorothiazide?and?lisinopril?in?the?morning?and?he?can?take?a n?additional?lisinopril?tablet?after?work?if?blood?pressure?is?high (2) Anxiety: Code(s): F41.9 - Anxiety disorder, unspecified Plan: Patient?has?a?psychiatrist?and?has?bupropion,?escitalopram?and?now?has? begun?quetiapine?as?well. He?notes?the?quetiapine?is?causing?some?difficulty?getting?things?done?in?the?mo rnings, however?he?is?taking?this?rather?late?at?night. I?advised?him?to?take?it?earlier?in?hi s?evenings?and?if?that?is?not?helping?he?should?discuss?it?with?his?psychiatrist ?who?may?want?to?adjust?the?dose. Also?discussed?referral?to?a?therapist.??He?had?a?therapist?in?the?past?who?reti red.?? He?will?discuss?with?his?psychiatrist?and?we?can?discuss?again?at?his?next?visit . Orders: Orders Comprehensive [place]. Panel Fast Today Z00.00 - Encounter for general adult medical examination without abnormal findings Lipid Panel Today Z00.00 - Encounter for general adult medical examination without abnormal findings Microalbumin, Random (w Creat) Today I10 - Essential (primary) hypertension Prostate Specific Antigen Scr Today Z12.5 - Encounter for screening for malignant neoplasm of prostate TSH reflex Free T4 Today Z00.00 - Encounter for general adult medical examination without abnormal findings UA and rflx microscopic Today Z00.00 - Encounter for general adult medical examination without abnormal findings Complete Blood Count Auto Diff Today Z00.00 - Encounter for general adult medical examination without abnormal findings Medications: Changed From lisinopril 20 mg PO QPM 90 days 90 tabs 2RF To lisinopril 20 mg PO BID 90 days 180 tabs 2RF Coding Level of Care Code Est Pt Level 3 (70734) Diagnoses Hypertension I10 Anxiety F41.9
== END 2023-12-31 16:18 | disposition home or self-care (01) ==
PROVIDERS: PCP Family Medicine; Visit Provider Family Medicine
DX: I10 Essential (primary) hypertension (principal); F41.9 Anxiety disorder, unspecified
CPT/HCPCS: 99214

== ENCOUNTER 2024-03-14 09:00 | Outpatient (REF) | payer OTHER, SELFPAY ==
[2024-03-14 11:14] LABS: MANUAL DIFF FLAG NO
[2024-03-14 11:17] LABS: Appearance Urine Clear; Color Urine Yellow; Glucose Urine UA Negative (Negative); Leukocyte Esterase Urine Negative (Negative); Nitrite Urine Negative (Negative); PH 8.5 (5.0-9.0); Specific Gravity - Urine <= 1.005 (1.005-1.025); Urine Blood Negative (Negative); Urine Ketones Negative (Negative); Urine Protein Negative (Neg-Trace)
[2024-03-14 11:30] LABS: Basophils Percent Auto 0.6 % (0-2); Eosinophils Absolute Auto 0.3 X10*3/uL (0.0-0.4); Eosinophils Percent Auto 4.6 % (0-4); Hematocrit 38.7 % (42.0-52.0); Hemoglobin 13.6 g/dl (14.0-18.0); Imm Gran Abs Auto 0.02 X10*3/uL (0.00-0.03); Imm Gran Pct Auto 0.3 % (0.0-0.4); Lymphocytes Absolute Auto 1.7 X10*3/uL (1.2-4.9); Lymphocytes Percent Auto 24.1 % (20-40); Mean Corpuscular HGB Conc 35.1 g/dl (31.0-36.0); Mean Corpuscular Hemoglobin 30.8 pg (27.0-33.0); Mean Corpuscular Volume 87.6 fL (80.0-98.0); Mean Platelet Volume 9.8 fL (9.4-12.4); Monocytes Absolute Auto 0.4 X10*3/uL (0.1-1.2); Monocytes Percent Auto 5.8 % (2-11); Neutrophils Absolute Auto 4.6 x10*3/uL (2.0-8.3); Neutrophils Percent Auto 64.6 % (45-73); Platelet Count 265 X10*3/uL (160-400); Red Blood Count 4.42 X10*6/uL (4.60-5.80); Red Cell Distribution Width 11.6 % (11.0-16.0); White Blood Count 7.1 X10*3/uL (4.8-10.8)
[2024-03-14 12:09] LABS: Alanine Aminotransferase 20 U/L (0-40); Alkaline Phosphatase 54 U/L (39-117); Anion Gap 11 (12-20); Aspartate Amino Transferase 16 U/L (5-37); Bilirubin Total 0.5 mg/dL (0.0-1.0); Blood Urea Nitrogen 14 mg/dL (9-16); Calcium 9.4 mg/dL (8.4-10.2); Carbon Dioxide 29 mmol/L (22-29); Chloride 100 mmol/L (96-108); Cholesterol 208 mg/dL (<200); Estimated Glomerular Filt Rate > 60; Glucose Fasting 95 mg/dL (60-99); HDL Cholesterol 41 mg/dL (>40); LDL Cholesterol Calculated 143 mg/dL (<100); Potassium 4.2 mmol/L (3.3-5.1); Sodium 136 mmol/L (135-145); Total Protein 6.7 g/dL (6.5-8.0); Triglycerides 120 mg/dL (<150)
[2024-03-14 12:11] LABS: Creatinine Urine 33.33 mg/dL; Microalbumin Urine < 5.0 mg/L
[2024-03-14 12:14] LABS: Prostate Specific Antigen Scr 0.36 ng/mL (<0.05-4.0)
[2024-03-14 12:27] LABS: TSH reflex Free T4 0.86 uIU/mL (0.32-4.0)
== END 2024-03-14 09:01 | disposition home or self-care (01) ==
LOC: HO.WFDLDS 09:00
PROVIDERS: Visit Provider Family Medicine
DX: Z00.00 Encounter for general adult medical examination without abnormal findings (principal); Z12.5 Encounter for screening for malignant neoplasm of prostate; I10 Essential (primary) hypertension
CPT/HCPCS: 36415; 80053; 80061; 81003; 82043; 82570; 84153; 84443; 85025

== ENCOUNTER 2024-03-20 12:55 | Outpatient (AMB) | payer OTHER, SELFPAY ==
--- NOTE | 2024-03-20 13:07 | A.OFFPC_ITS ---
Vital Signs 03/20/24 13:11 Height 5 ft 6 in Weight 172 lb 6 oz BMI 27.8 BP 120/60 Blood Pressure Location Rt brachial Position Sitting Respiration 12 Pulse 76 Pulse Source Pulse Oximeter Temp 96.9 F Temp Source Tympanic Pulse Oximetry (%) 97 Oxygen Delivery Method Room Air Intake Visit Reasons: CPE with f/u labs and health maint. 30 mins Intake Note: cpe Allergies No Known Allergies Allergy (Verified 03/20/24 13:07) Medication List - Last Reconciled 03/20/24 by Joseph Hudson MD betamethasone valerate 0.1% 1 appl topical BID PRN 10 days blood pressure monitor Automatic, Digital. Dx: I10. Daily As directed, 999 days/lifetime bupropion HCl XL 300 mg PO QAM escitalopram oxalate 20 mg PO BEDTIME hydrochlorothiazide 12.5 mg PO QAM 90 days lisinopril 20 mg PO BID 90 days omeprazole 20 mg PO DAILY Tobacco use date assessed: 03/20/24 Dental Screening Dental Screen Date: 03/20/24 Did you have a dental visit in the last 12 months?: Yes Did you have a dental problem in the last 6 months where you did not have access to dental care?: No HPI CPE with f/u labs and health maint. 30 mins HPI Details 63 y/o male presents for a CPE with f/u labs and health maintenance. Labs drawn 03/14/24. Reviewed labs with pt. Mild anemia. Triglycerides 120. TC 208. LDL 143. HDL 41. PSA 0.36. Blood pressure today 120/60, 76p. He is on lisinopril 20mg, hydrochlorothiazide 12.5mg daily. Pt notes mood is fine today. He is on bupropion 300mg, escitalopram 20mg. Pt notes he is no longer on quetiapine 25mg. He notes last colonoscopy was at [facility]. He notes this was about 2 years ago. HPI Comments History of Present Illness Details Documentation assistance for Joseph Hudson MD, was provided by Kaz Mckenzie,? Commercial Fisher on 03/20/2024 at 1:17 PM EST. I, Dr. Hudson, have read, observed, and verified documentation. [facility] Medical History (Updated 05/22/23 @ 16:55 by Kaz Mckenzie) GERD (gastroesophageal reflux disease) Anxiety Surgical History History of surgery on lower extremity Hx of appendectomy History of deviated nasal septum Family History Mother No problems noted. Father Liver cancer Paternal Grandmother Primary cancer of muscle of thorax Paternal Grandfather Colon cancer Maternal Grandfather due to metastatic malignant neoplasm Maternal Grandmother due to metastatic malignant neoplasm Maternal Grandfather Stomach cancer Maternal Grandmother Pancreatic cancer Social History (Updated 03/20/24 @ 13:09 by Demarcus Dugan MA) Household Members: Spouse and Family Housing: House Alcohol intake: current Alcohol intake frequency: 0-2 drinks per day Alcohol type: beer Patient Tobacco Use Status: Never used Tobacco e-Cigarette/Vaping Use: Never Used Second Hand Smoke Exposure: No Substance Use Type: Marijuana service: No Current occupational status: employed 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 1. Little interest or pleasure in doing things: not at all 2. Feeling down, depressed, or hopeless: not at all 3. Trouble falling or staying asleep, or sleeping too much: not at all 4. Feeling tired or having little energy: several days 5. Poor appetite or overeating: not at all 6. Feeling bad about yourself - or that you are a failure or have let yourself or your family down: not at all 7. Trouble concentrating on things, such as reading the newspaper or watching television: not at all 8. Moving or speaking so slowly that other people could have noticed. Or the opposite - being so fidgety or restless that you have been moving around a lot more than usual: not at all 9. Thoughts that you would be better off or of hurting yourself in some way: not at all Total score: 1 Depression Screening Interpretation: Negative Depression Screening Done: Yes [id number] - PHQ-9 Billing: Yes Source: Developed by Drs. Del Vázquez, Melanie Herr, Robert Terrazas and colleagues, with an educational kiesha from [employer]. Thrive Questionnaire Date Thrive assessed: 03/20/24 I am a: Patient What is your living situation today?: I have a steady place to live Within the past 12 months, did the food you bought not last and you didn't have the money to get more?: Never true Within the past 12 months, did you worry whether your food would run out before you got money to buy more?: Never true Do you have trouble paying for medicines?: No Do you have trouble getting transportation to medical appointments?: No Do you have trouble paying your heating and electricity bill?: No Do you have trouble taking care of your child, family member or friend?: No Do you have trouble with day-to-day activities such as bathing, preparing meals, shopping, managing finances, etc.?: No Are you currently unemployed and looking for a job?: No Are you interested in more education?: No Currently or been in a relationship where the following occur: No concerns reported THRIVE Score: 0 AUDIT C Alcohol Use Questionnaire (AUDIT-C) 1. How often do you have a drink containing alcohol?: 4 or more times a week 2. How many drinks containing alcohol do you have on a typical day when you are drinking?: 1 or 2 3. How often do you have six or more drinks on one occasion?: Never Total Score: 4 ELEANOR-7 AMB Questionnaire ELEANOR-7 Date ELEANOR - 7 assessed: 03/20/24 Feeling nervous, anxious, or on edge: 1 = Several days Not being able to stop or control worryin = Not at all Worrying too much about different things: 1 = Several days Trouble relaxin = Not at all Being so restless that it is hard to sit still: 0 = Not at all Becoming easily annoyed or irritable: 0 = Not at all Feeling afraid as if something awful might happen: 0 = Not at all Total ELEANOR-7 score (0-4 normal; 5-9 mild; 10-14 moderate; 15-21 severe): 2 Source: Developed by Drs. Del Vázquez, Melanie Herr, Robert Terrazas and colleagues, with an educational kiesha from [employer]. ELEANOR-7 Assessment Billing ELEANOR-7 Assessment Tool: ELEANOR-7 Assessment 32041 Review of Systems Const Denies chills, Denies fatigue, Denies fever(s), Denies headache(s) and Denies weakness Eyes Denies change in vision ENT Denies dizziness, Denies headache(s), Denies hearing loss, Denies nasal congestion, Denies sinus pain, Denies sinus pressure and Denies sore throat Card Denies chest pain, Denies lightheadedness, Denies dyspnea and Denies other (palpitations) Resp Denies cough, Denies dyspnea and Denies wheezing GI Denies abdominal pain, Denies melena, Denies hematochezia, Denies change in bowel habits, Denies dyspepsia and Denies nausea Denies hematuria and Denies dysuria Musc Denies abnormal gait, Denies myalgias, Denies arthralgias, Denies numbness and Denies tingling Skin/Breast Denies rash, Denies unusual bruising and Denies wounds Neuro Denies abnormal gait, Denies dizziness, Denies headache(s), Denies memory loss, Denies numbness, Denies Sensory deficit (Neuro), Denies tingling and Denies weakness Psych Reports anxiety, Denies depression and Denies memory loss Endo Denies cold intolerance, Denies fatigue, Denies heat intolerance, Denies polydipsia and Denies polyuria Eusebio/Lymph Denies easy bleeding and Denies easy bruising Aller/Immun Denies wheezing Physical exam (Primary Care) Vital Signs: Last Vital Signs Temp 96.9 F 03/20/24 13:11 Pulse 76 03/20/24 13:11 Resp 12 03/20/24 13:11 BP 120/60 03/20/24 13:11 Pulse Ox 97 03/20/24 13:11 Oxygen Delivery Method Room Air 03/20/24 13:11 BMI result Body Mass Index 27.8 Tobacco/Smoking Status: Tobacco use Status Tobacco use date assessed 03/20/24 03/20/24 13:14 Patient Tobacco Use Status Never used Tobacco 03/20/24 13:14 e-Cigarette/Vaping Use Never Used 03/20/24 13:14 PHQ-9: PHQ-9 Score PHQ-9: Total score 1 03/20/24 13:14 Depression Screening Interpretation: Negative Thrive Assessment: Date of Thrive Assessment Date Thrive assessed 03/20/24 03/20/24 13:14 Currently or been in a relationship where the following occur: No concerns reported Const General: no acute distress, well developed, alert and awake Nutritional Appearance: well nourished Orientation/consciousness: patient oriented x3 [facility] Head: Yes normocephalic and Yes atraumatic Ears: hearing grossly normal bilaterally and TM's normal bilaterally General nose exam: Normal external nose present and Normal nares present Mouth: Normal oral and palatal mucosa present and moist mucous membranes Teeth and gingiva: dentition normal Throat: Yes posterior oropharynx normal Eyes General: appearance normal, both eyes and all related structures Pupils: Equal, round and reactive pupils present and Pupil accommodation reflex normal EOM: EOMs intact bilaterally Neck Neck: Yes normal visual inspection, Yes no lymphadenopathy and Yes trachea midline Thyroid: Thyroid normal Carotids: no bruits Lymphatic: no lymphadenopathy noted Chest Chest palpation & inspection: normal inspection of the chest Resp Effort & Inspection: normal respiratory effort Auscultation: clear to auscultation bilaterally Cardio Rate: regular rate Rhythm: regular rhythm Heart sounds: S1 normal heart sound present, S2 normal heart sound present, no gallops, no murmurs and no rubs Bruits: no abdominal aortic bruits and no carotid bruits GI Palpation (GI): No Abdominal aortic bruit present, Soft to palpation, nontender, No hepatosplenomegaly present and No Rebound tenderness present Auscultation: normal bowel sounds General: Yes no CVA tenderness Back/Spine/Pelvis Back: no CVA tenderness Cervical Spine: cervical ROM normal and No Cervical spine tenderness Thoracic/Lumbar Spine: thoraco-lumbar ROM normal, No pain with thoraco-lumbar ROM, No thoracic spinal tenderness and No lumbar spinal tenderness Skin Lesions: no lesions Rashes: no rashes Trauma: no lacerations or abrasions Wounds: no wounds Nails: normal Neuro General: patient oriented x3 Cranial nerves: Yes Equal, round and reactive pupils present Cognition (Neuro): normal cognition Gait exam (Neuro): Normal gait present Motor exam (neuro): 5/5 motor strength present throughout Sensory Exam: No Sensory deficit (Neuro) Deep tendon reflexes (DTR's): Right patellar reflex intensity grade: 2+ and Left patellar reflex intensity grade: 2+ Extrem General: Yes normal to inspection and No edema Psych Appearance: grossly normal Affect: normal affect Attitude: cooperative Thought process: Normal thought process present Assessment and Plan Assessment & Plan (1) Annual physical exam: Code(s): Z00.00 - Encounter for general adult medical examination without abnormal findings Plan: 63-year-old?male?presents?for?complete?physical?exam Encouraged?healthy?diet?with?active?lifestyle?and?plenty?of?exercise (2) Hypercholesterolemia: Code(s): E78.00 - Pure hypercholesterolemia, unspecified Plan: LDL?cholesterol?is?above?goal?of?less?than?100 Encouraged?a?diet?low?in?saturated?fats?and?cholesterol?and?exercise?as?well?as? about?a?5?lb?weight?loss (3) Elevated fasting glucose: Code(s): R73.01 - Impaired fasting glucose Plan: Blood?sugar?at?most?recent?check?was?within?normal?range Will?continue?to?monitor Encouraged?healthy?diet?and?exercise (4) Anxiety: Code(s): F41.9 - Anxiety disorder, unspecified Plan: Patient?is?taking?escitalopram?and?bupropion Stable Continue?current?medication?regimen (5) Hypertension: Code(s): I10 - Essential (primary) hypertension Plan: Blood?pressure?is?controlled.??Goal?is?less?than?140/90 Continue?current?medications (6) Hearing loss: Code(s): H91.90 - Unspecified hearing loss, unspecified ear Plan: Mild?hearing?loss. Patient?declined?hearing?aids He?will?let?me?know?if?hearing?is?worsening?and?would?re-evaluate?at?audiology (7) Screening for prostate cancer: Code(s): Z12.5 - Encounter for screening for malignant neoplasm of prostate Plan: PSA?is?within?normal?range?and?stable Will?continue?annual?screen (8) Screening for colon cancer: Code(s): Z12.11 - Encounter for screening for malignant neoplasm of colon Plan: Patient?says?he?had?a?colonoscopy?about?2?years?ago?at?[facility] He?says?he?was?told?to?follow-up?in?10?years Will?request?report Orders: Orders Lipid Panel Today E78.00 - Pure hypercholesterolemia, unspecified, Z00.00 - Encounter for general adult medical examination without abnormal findings Comprehensive [place]. Panel Fast Today E78.00 - Pure hypercholesterolemia, unspecified, Z00.00 - Encounter for general adult medical examination without abnormal findings Coding Level of Care Code Est Pt Level 3 (38279) Est Pt Prev Care 40-64y(34013) Diagnoses Annual physical exam Z00.00 Hypercholesterolemia E78.00 Elevated fasting glucose R73.01 Anxiety F41.9 Hypertension I10 Hearing loss H91.90 Screening for prostate cancer Z12.5 Screening for colon cancer Z12.11 Additional Codes ELEANOR-7 Assessment Billing - ELEANOR-7 Assessment Tool: ELEANOR-7 Assessment 16949 ([id number])
[2024-03-20 13:11] VITALS: BP 120/60; PULSE 76; RESP 12; TEMP 36.1; O2SAT 97; BMI 27.8
== END 2024-03-20 13:38 | disposition home or self-care (01) ==
PROVIDERS: PCP Family Medicine; Visit Provider Family Medicine
DX: Z00.00 Encounter for general adult medical examination without abnormal findings (principal); E78.00 Pure hypercholesterolemia, unspecified; R73.01 Impaired fasting glucose; F41.9 Anxiety disorder, unspecified; I10 Essential (primary) hypertension; H91.93 Unspecified hearing loss, bilateral; Z12.5 Encounter for screening for malignant neoplasm of prostate; Z12.11 Encounter for screening for malignant neoplasm of colon
CPT/HCPCS: 99396

== ENCOUNTER 2024-07-14 08:03 | Outpatient (REF) | payer OTHER, SELFPAY ==
[2024-07-14 12:52] LABS: Creatinine Urine 118.71 mg/dL; Microalbumin Urine < 5.0 mg/L
[2024-07-14 13:11] LABS: Alanine Aminotransferase 23 U/L (0-40); Albumin Level 4.2 g/dL (3.5-5.0); Alkaline Phosphatase 59 U/L (39-117); Anion Gap 11 (12-20); Aspartate Amino Transferase 21 U/L (5-37); Bilirubin Total 0.5 mg/dL (0.0-1.0); Blood Urea Nitrogen 21 mg/dL (9-16); Calcium 9.3 mg/dL (8.4-10.2); Carbon Dioxide 29 mmol/L (22-29); Chloride 102 mmol/L (96-108); Cholesterol 231 mg/dL (<200); Estimated Glomerular Filt Rate > 60; Glucose Fasting 99 mg/dL (60-99); HDL Cholesterol 44 mg/dL (>40); LDL Cholesterol Calculated 165 mg/dL (<100); Potassium 4.1 mmol/L (3.3-5.1); Sodium 138 mmol/L (135-145); Total Protein 6.9 g/dL (6.5-8.0); Triglycerides 114 mg/dL (<150)
== END 2024-07-14 08:04 | disposition home or self-care (01) ==
LOC: HO.WFDLDS 08:03
PROVIDERS: Visit Provider Family Medicine
DX: I10 Essential (primary) hypertension (principal); Z00.00 Encounter for general adult medical examination without abnormal findings; E78.00 Pure hypercholesterolemia, unspecified
CPT/HCPCS: 36415; 80053; 80061; 82043; 82570

== ENCOUNTER 2024-07-21 16:25 | Outpatient (AMB) | payer OTHER, SELFPAY ==
--- NOTE | 2024-07-21 16:26 | A.OFFPC_ITS ---
Vital Signs 07/21/24 16:30 Height 5 ft 6 in Weight 178 lb BMI 28.7 BP 133/67 Blood Pressure Location Rt brachial Position Sitting Respiration 16 Pulse 72 Pulse Source Pulse Oximeter Temp 97.8 F Temp Source Oral Pulse Oximetry (%) 98 Oxygen Delivery Method Room Air Intake Visit Reasons: f/u hypercholesterolemia Intake Note: patient here for follow up on hypercholesterolmia [employer] Systems Serviceperson Required: No Allergies No Known Allergies Allergy (Verified 07/21/24 16:29) Medication List - Last Reconciled 07/21/24 by Joseph Hudson MD atorvastatin 20 mg PO BEDTIME 90 days blood pressure monitor Automatic, Digital. Dx: I10. Daily As directed, 999 days/lifetime bupropion HCl XL 300 mg PO QAM escitalopram oxalate 20 mg PO BEDTIME hydrochlorothiazide 12.5 mg PO QAM 90 days lisinopril 20 mg PO BID 90 days omeprazole 20 mg PO DAILY Tobacco use date assessed: 07/21/24 Dental Screening Dental Screen Date: 07/21/24 Did you have a dental visit in the last 12 months?: Yes Did you have a dental problem in the last 6 months where you did not have access to dental care?: No Was dental information given to patient?: Patient has dentist HPI f/u hypercholesterolemia HPI Details 64 y/o male presents to f/u hypercholest erolemia, elevated blood sugars as well as HTN. Labs drawn 07/14/24. Reviewed labs with pt. Triglycerides 114. TC 231. LDL worsened from 143 to 165. HDL 44. Blood pressure today 133/67, 72p. He is on lisinopril 20mg b.i.d, HCTZ 12.5mg daily. Has complaints of a skin tag behind R ear. Also has complaints of seborrheic keratosis on L side of his rib. HPI Comments History of Present Illness Details Documentation assistance for Joseph Hudson MD, was provided by Kaz Mckenzie, [employer] on 07/21/2024 at 5:19 PM EST. I, Dr. Hudson, have read, observed, and verified documentation. [facility] Medical History (Updated 07/21/24 @ 17:33 by Joseph Hudson MD) GERD (gastroesophageal reflux disease) Anxiety Surgical History History of surgery on lower extremity Hx of appendectomy History of deviated nasal septum Family History Mother No problems noted. Father Liver cancer Paternal Grandmother Primary cancer of muscle of thorax Paternal Grandfather Colon cancer Maternal Grandfather due to metastatic malignant neoplasm Maternal Grandmother due to metastatic malignant neoplasm Maternal Grandfather Stomach cancer Maternal Grandmother Pancreatic cancer Social History (Updated 03/20/24 @ 13:09 by ROSAS Palm) Household Members: Spouse and Family Housing: House Alcohol intake: current Alcohol intake frequency: 0-2 drinks per day Alcohol type: beer Patient Tobacco Use Status: Never used Tobacco e-Cigarette/Vaping Use: Never Used Second Hand Smoke Exposure: No Substance Use Type: Marijuana service: No Current occupational status: employed 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 Cognitive needs: No Hearing needs: No Vision needs: No Questionnaire Thrive Questionnaire Date Thrive assessed: 07/14/24 I am a: Patient What is your living situation today?: I choose not to answer this question Within the past 12 months, did the food you bought not last and you didn't have the money to get more?: I choose not to answer this question Within the past 12 months, did you worry whether your food would run out before you got money to buy more?: I choose not to answer this question Do you have trouble paying for medicines?: I choose not to answer this question Do you have trouble getting transportation to medical appointments?: I choose not to answer this question Do you have trouble paying your heating and electricity bill?: I choose not to answer this question Do you have trouble taking care of your child, family member or friend?: I choose not to answer this question Do you have trouble with day-to-day activities such as bathing, preparing meals, shopping, managing finances, etc.?: I choose not to answer this question Are you currently unemployed and looking for a job?: I choose not to answer this question Are you interested in more education?: I choose not to answer this question Please select the resources that you would like help with: None Currently or been in a relationship where the following occur: I choose not to answer THRIVE Score: 0 AUDIT C Alcohol Use Questionnaire (AUDIT-C) 1. How often do you have a drink containing alcohol?: 2-3 times a week 2. How many drinks containing alcohol do you have on a typical day when you are drinking?: 1 or 2 3. How often do you have six or more drinks on one occasion?: Never Total Score: 3 ELEANOR-7 AMB Questionnaire ELEANOR-7 Date ELEANOR - 7 assessed: 03/20/24 Feeling nervous, anxious, or on edge: 0 = Not at all Not being able to stop or control worryin = Not at all Worrying too much about different things: 0 = Not at all Trouble relaxin = Not at all Being so restless that it is hard to sit still: 0 = Not at all Becoming easily annoyed or irritable: 0 = Not at all Feeling afraid as if something awful might happen: 0 = Not at all Total ELEANOR-7 score (0-4 normal; 5-9 mild; 10-14 moderate; 15-21 severe): 0 Source: Developed by Drs. Del Vázquez, Melanie Herr, Robert Terrazas and colleagues, with an educational kiesha from [email or web address]. Review of Systems Const Denies chills, Denies fatigue, Denies fever(s), Denies headache(s) and Denies weakness ENT Denies dizziness and Denies headache(s) Card Denies dyspnea Resp Denies cough, Denies dyspnea, Denies wheezing and Denies other (shortness of breath) Musc Denies numbness and Denies tingling Neuro Denies dizziness, Denies headache(s), Denies numbness, Denies tingling and Denies weakness Psych Denies anxiety and Denies depression Endo Denies fatigue Aller/Immun Denies wheezing Physical exam (Primary Care) Vital Signs: Last Vital Signs Temp 97.8 F 07/21/24 16:30 Pulse 72 07/21/24 16:30 Resp 16 07/21/24 16:30 BP 133/67 07/21/24 16:30 Pulse Ox 98 07/21/24 16:30 Oxygen Delivery Method Room Air 07/21/24 16:30 BMI result Body Mass Index 28.7 Tobacco/Smoking Status: Tobacco use Status Tobacco use date assessed 07/21/24 07/21/24 16:33 Patient Tobacco Use Status Never used Tobacco 07/21/24 16:28 e-Cigarette/Vaping Use Never Used 07/21/24 16:28 Thrive Assessment: Date of Thrive Assessment Date Thrive assessed 07/14/24 07/21/24 16:28 Currently or been in a relationship where the following occur: I choose not to answer Const General: well developed; No acute distress Nutritional Appearance: well nourished Orientation/consciousness: patient oriented x3 HENMT Head: Yes normocephalic and Yes atraumatic Eyes General: appearance normal, both eyes and all related structures Pupils: Equal, round and reactive pupils present EOM: EOMs intact bilaterally Resp Effort & Inspection: normal respiratory effort Neuro General: patient oriented x3 and gait normal Cranial nerves: Yes Equal, round and reactive pupils present Psych Affect: normal affect Coding Level of Care Code Est Pt Level 4 (92622) Diagnoses Hypercholesterolemia E78.00 Hypertension I10 Elevated fasting glucose R73.01 Skin tag L91.8 Neoplasm of uncertain behavior of skin D48.5 Assessment & Plan Assessment & Plan (1) Hypercholesterolemia: Code(s): E78.00 - Pure hypercholesterolemia, unspecified Category: Medical Plan: LDL?cholesterol?is?too?high Will?start?atorvastatin?and?we?can?recheck?labs?in?a?few?months Encouraged?a?diet?low?in?saturated?fats?and?cholesterol (2) Hypertension: Code(s): I10 - Essential (primary) hypertension Category: Medical Plan: Blood?pressure?is?controlled.??Goal?is?less?than?140/90 Continue?current?medication (3) Elevated fasting glucose: Code(s): R73.01 - Impaired fasting glucose Category: Medical Plan: Patient?had?a?few?eleva gayathri?fasting?blood?sugars?but?more?recently?has?been?controlled Will?continue?monitor?periodically Encouraged?a?diet?lower?in?sugars?and?starches (4) Skin tag: Code(s): L91.8 - Other hypertrophic disorders of the skin Category: Medical Plan: Patient?has?skin?tag?behind?his?right?ear We?can?perform?cryotherapy?at?his?next?visit (5) Neoplasm of uncertain behavior of skin: Code(s): D48.5 - Neoplasm of uncertain behavior of skin Category: Medical Plan: Sun?damaged?skin?and?multiple?lesions?on?his?back Referred?to?dermatology Orders: Orders Lipid Panel Today E78.00 - Pure hypercholesterolemia, unspecified, Z00.00 - Encounter for general adult medical examination without abnormal findings Comprehensive [place]. Panel Fast Today E78.00 - Pure hypercholesterolemia, unspecified, Z00.00 - Encounter for general adult medical examination without abnormal findings Referrals Dermatology Referral D48.5 - Neoplasm of uncertain behavior of skin, L57.8 - Other skin changes due to chronic exposure to nonionizing radiation Medications: New atorvastatin 20 mg PO BEDTIME 90 days 90 tabs 3RF
[2024-07-21 16:30] VITALS: BP 133/67; PULSE 72; RESP 16; TEMP 36.6; O2SAT 98; BMI 28.7
== END 2024-07-21 17:05 ==
PROVIDERS: PCP Family Medicine; Visit Provider Family Medicine
DX: E78.00 Pure hypercholesterolemia, unspecified (principal); I10 Essential (primary) hypertension; R73.01 Impaired fasting glucose; L91.8 Other hypertrophic disorders of the skin; D48.5 Neoplasm of uncertain behavior of skin

== ENCOUNTER → 2024-07-21 16:25 | Outpatient (BNVA) | payer OTHER, SELFPAY | PROVIDERS: PCP Family Medicine; Visit Provider Family Medicine ==